=== PATIENT | female | born 1970 | race Caucasian/White ===

== ENCOUNTER 2019-05-08 08:25 | Day surgery (SDC) | payer BC ==
[~2019-05-08 08:25] MED LIST: Lactated Ringers 1,000 ML IV SCH; Midazolam 1 MG/ML 2 ML SDV ONE; Propofol 200 MG/20 ML SDV ONE; Sodium Chloride 0.9% 10 ML SDV IV PRN; Sodium Chloride 0.9% 10 ML Syringe FLUSH PRN; Sodium Chloride 0.9% 2.5 ML Syringe FLUSH PRN
--- NOTE | 2019-05-08 09:10 | PCM.PREANE ---
Preanesthetic Assessment - Anesthesia/Transfusion/Family Hx Anesthesia History: No Prior Anesthesia Family History of Anesthesia Reaction: No Transfusion History: No Prior Transfusion(s) Intubation History: Unknown - Review of Systems General: No Symptoms Pulmonary: No Symptoms Cardiovascular: No Symptoms Gastrointestinal: No Symptoms, Other (screening, mother dg. of having colon cancer) Neurological: No Symptoms Other: Reports: None - Physical Assessment Vital Signs: Last Vital Signs Temp 36.4 C 05/08/19 08:49 Pulse 96 05/08/19 08:49 Resp 15 05/08/19 08:49 BP 111/79 05/08/19 08:49 Pulse Ox 97 05/08/19 08:49 Height: 5 ft 8 in Weight: 76.657 kg ASA Class: 2 Mental Status: Alert & Oriented x3 Airway Class: Mallampati = 2 Dentition: Reports: Normal Dentition Thyro-Mental Finger Breadths: 3 Mouth Opening Finger Breadths: 3 ROM/Head Extension: Full Lungs: Clear to Auscultation, Normal Respiratory Effort Cardiovascular: Regular Rate, Regular Rhythm - Allergies Allergies/Adverse Reactions: Allergies Allergy/AdvReac Type Severity Reaction Status Date / Time No Known Allergies Allergy Verified 05/02/19 12:52 - Blood Blood Available: No - Anesthesia Plan Pre-Op Medication Ordered: None - Acknowledgements Anesthesia Type Planned: MAC Pt an Appropriate Candidate for the Planned Anesthesia: Yes Alternatives and Risks of Anesthesia Discussed w Pt/Guardian: Yes Pt/Guardian Understands and Agrees with Anesthesia Plan: Yes PreAnesthesia Questionnaire HEENT History: Reports: Allergic Rhinitis Cardiovascular History: Reports: Hypertension Neurological History: Reports: Other (See Below) Other Neuro History: nausea on recent cruise ship- no vomiting - Past Surgical History Head Surgeries/Procedures: Reports: None - SUBSTANCE USE Smoking Status *Q: Never Smoker Recreational Drug Use History: No - HOME MEDS Home Medications: Home Meds Montelukast Sodium 10 mg PO DAILY 05/02/19 [History] Potassium Chloride [Klor-Con] 20 meq PO BID 05/02/19 [History] hydroCHLOROthiazide [Hydrochlorothiazide] 25 mg PO DAILY 05/02/19 [History] - CURRENT (IN HOUSE) MEDS Current Meds: Current Medications Lactated Ringer's (Ringers, Lactated) 1,000 mls @ 125 mls/hr IV ASDIRECTED GRANT Last Admin: 05/08/19 09:03 Dose: 125 mls/hr Sodium Chloride (Saline Flush) 10 ml FLUSH ASDIRECTED PRN PRN Reason: Keep Vein Open Sodium Chloride (Saline Flush) 2.5 ml FLUSH ASDIRECTED PRN PRN Reason: Keep Vein Open Sodium Chloride (Saline Flush) 10 ml FLUSH ASDIRECTED PRN PRN Reason: Keep Vein Open Sodium Chloride (Saline Flush) 2.5 ml FLUSH ASDIRECTED PRN PRN Reason: Keep Vein Open Sodium Chloride (Normal Saline) 10 ml IV ASDIRECTED PRN PRN Reason: IV Use Discontinued Medications Midazolam HCl (Versed 1 Mg/Ml) Confirm Administered Dose 2 mg .ROUTE .STK-MED ONE Stop: 05/08/19 08:12 Propofol (Diprivan 20 Ml) Confirm Administered Dose 400 mg .ROUTE .STK-MED ONE Stop: 05/08/19 08:12
--- NOTE | 2019-05-08 11:57 | PCM.OPNOTE ---
- General Post-Op/Procedure Note Date of Surgery/Procedure: 05/08/19 Operative Procedure(s): Screening colonoscopy with polypectomy Findings: Sigmoid colon polyps x 3 Pre Op Diagnosis: Family history of colon cancer Post-Op Diagnosis: Sigmoid colon polyps x 3 Anesthesia Technique: MAC Primary Surgeon: Sugar Busby Condition: Good
--- NOTE | 2019-05-08 11:59 | PCM.POSTAN ---
POST ANESTHESIA ASSESSMENT - MENTAL STATUS Mental Status: Alert, Oriented - VITAL SIGNS Vital Signs: Last Vital Signs Temp 36.4 C 05/08/19 08:49 Pulse 65 05/08/19 11:55 Resp 16 05/08/19 11:55 BP 117/74 05/08/19 11:55 Pulse Ox 100 05/08/19 11:55 - RESPIRATORY Respiratory Status: Respiratory Rate WNL, Airway Patent, O2 Saturation Stable - CARDIOVASCULAR CV Status: Pulse Rate WNL, Blood Pressure Stable - GASTROINTESTINAL GI Status: No Symptoms - PAIN Pain Score: 0 - POST OP HYDRATION Hydration Status: Adequate & Stable - OBSERVATIONS Free Text/Narrative:: no anesthesia problems
--- NOTE | 2019-05-08 12:42 | PCM48HPAN ---
Post Anesthesia Note - EVALUATION WITHIN 48HRS OF ANESTHETIC Vital Signs in Normal Range: Yes Patient Participated in Evaluation: Yes Respiratory Function Stable: Yes Airway Patent: Yes Cardiovascular Function Stable: Yes Hydration Status Stable: Yes Pain Control Satisfactory: Yes Nausea and Vomiting Control Satisfactory: Yes Mental Status Recovered: Yes Vital Signs: Last Vital Signs Temp 36.4 C 05/08/19 08:49 Pulse 73 05/08/19 12:05 Resp 14 05/08/19 12:05 BP 125/71 05/08/19 12:05 Pulse Ox 97 05/08/19 12:05 - COMMENTS/OBSERVATIONS Free Text/Narrative:: No anesthesia problems
--- NOTE | 2019-05-08 17:53 | OR ---
SURGEON: SUGAR BUSBY MD DATE OF PROCEDURE: 05/08/2019 PREOPERATIVE DIAGNOSIS: Family history of colon cancer. POSTOPERATIVE DIAGNOSIS: Sigmoid colon polyps x3. PROCEDURE PERFORMED: Screening colonoscopy with polypectomy. PRIMARY SURGEON: Sugar Busby MD. ANESTHESIA: MAC. INSTRUMENT USED: Olympus colonoscope. EXTENT OF EXAM: To the cecum. PREPARATION: Good. LIMITATIONS: None. INDICATIONS FOR EXAMINATION: The patient is a 48-year-old female who presents for screening colonoscopy. Her mother was diagnosed with colon cancer at the age of 84. The patient and I discussed the procedure; expected perioperative course; and risks including bleeding, infection, or damage to surrounding structures including perforation. The patient verbalized understanding and wishes to proceed. PROCEDURE IN DETAIL: The patient was brought into the endoscopy suite and placed in the left lateral decubitus position. A time-out was completed verifying the patient's name, age, date of , allergies, and procedure to be performed. Monitored anesthesia care was induced and continuous oxygen was provided via nasal cannula throughout the procedure. After adequate sedation was achieved, a digital rectal exam was performed. This exam was within normal limits. A well-lubricated colonoscope was inserted in the rectum and advanced under direct visualization to the level of the cecum. The cecum was identified by both visual and anatomic landmarks. A photograph was taken of the cecal cap as well as with the scope retroflexed within the cecum. The scope was then fully withdrawn while examining the color, texture, anatomy, and integrity of the mucosa from the cecum to the anal canal. The patient was found to have 3 sessile polyps within the distal sigmoid colon. These were removed in piecemeal fashion using cold biopsy forceps. The scope was brought into the rectum and retroflexed to allow visualization of the anal canal opening. This appeared normal and a photograph was taken. The scope was then straightened out and fully withdrawn. The cecum to anus time was 11 minutes. The patient tolerated the procedure well and was transferred to the PACU in stable condition. ENDOSCOPIC DIAGNOSIS: Sigmoid colon polyps x3. RECOMMENDATIONS: Follow up in clinic in 2 weeks. DIAMOND BARRAGAN /[id number]
== END 2019-05-08 12:26 | disposition home or self-care (01) ==
LOC: MW.SDS 08:25
PROVIDERS: ATTEND Surgery
DX: Z12.11 Encounter for screening for malignant neoplasm of colon (principal); K63.5 Polyp of colon; I10 Essential (primary) hypertension; Z86.010 Personal history of colon polyps; Z80.0 Family history of malignant neoplasm of digestive organs; Z79.899 Other long term (current) drug therapy
CPT/HCPCS: 45380; 81025; J2250; J2704; J7120; 88305

== ENCOUNTER 2021-11-02 06:33 | Day surgery (SDC) | payer BC ==
[~2021-11-02 06:33] MED LIST changes: -Midazolam 1 MG/ML 2 ML SDV ONE; -Propofol 200 MG/20 ML SDV ONE; -Sodium Chloride 0.9% 10 ML SDV IV PRN; -Sodium Chloride 0.9% 10 ML Syringe FLUSH PRN; -Sodium Chloride 0.9% 2.5 ML Syringe FLUSH PRN
[2021-11-02] MEDS ORDERED: fentaNYL 100 MCG/2 ML SDV ONE (07:08)
[2021-11-02] MEDS ORDERED: Lidocaine 2% 5 ML SDV ONE (07:08)
[2021-11-02] MEDS ORDERED: Propofol 200 MG/20 ML SDV ONE (07:08)
[2021-11-02] MEDS ORDERED: Dexamethasone 4 MG/ML 5 ML MDV ONE (07:08)
[2021-11-02] MEDS ORDERED: Ondansetron 4 MG/2 ML SDV ONE (07:08)
[2021-11-02] MEDS ORDERED: fentaNYL 50 MCG/ML SDV IVPUSH PRN (07:26)
[2021-11-02] MEDS ORDERED: Albuterol 0.083% 2.5 MG/3 ML Neb Soln NEB PRN (07:26)
[2021-11-02] MEDS ORDERED: Ondansetron 4 MG/2 ML SDV IVPUSH PRN (07:26)
[2021-11-02] MEDS ORDERED: HYDROmorphone 1 MG/ML Syringe IVPUSH PRN (07:26)
[2021-11-02] MEDS ORDERED: Metoclopramide 10 MG/2 ML SDV IVPUSH PRN (07:26)
[2021-11-02] MEDS ORDERED: Naloxone 0.4 MG/ML SDV IVPUSH PRN (07:26)
[2021-11-02 08:03] LABS: CARBON DIOXIDE,CO2 21.6 mmol/L (21.0-32.0); POTASSIUM,K 3.8 mmol/L (3.5-5.1)
[2021-11-02] MEDS ORDERED: Ketorolac 30 MG/ML SDV ONE (08:28)
[2021-11-02] MEDS ORDERED: Acetaminophen/HYDROcodone 325-5 MG Tab PO PRN (08:40)
== END 2021-11-02 09:35 | disposition home or self-care (01) ==
LOC: MW.SDS 06:33
PROVIDERS: ATTEND Obstetrics & Gynecology
DX: N84.0 Polyp of corpus uteri (principal); I10 Essential (primary) hypertension; Z86.010 Personal history of colon polyps; Z79.899 Other long term (current) drug therapy; Z72.89 Other problems related to lifestyle
CPT/HCPCS: 36415; 58558; 80053; 85025; J0131; J1100; J1885; J2704; J3010; J7120; 00952; J2405

== ENCOUNTER 2024-08-09 09:38 | Day surgery (SDC) | payer BC ==
[~2024-08-09 09:38] MED LIST changes: +Albuterol 0.083% 2.5 MG/3 ML Neb Soln NEB PRN; +HYDROmorphone 1 MG/ML Syringe IVPUSH PRN; -Lactated Ringers 1,000 ML IV SCH; +Metoclopramide 10 MG/2 ML SDV IVPUSH PRN; +Morphine 2 MG/ML SYRINGE IVPUSH PRN; +Naloxone 0.4 MG/ML SDV IVPUSH PRN; +Ondansetron 4 MG/2 ML SDV IVPUSH PRN; +Phenylephrine HCl In 0.9% NaCl 1 MG/10 ML Syringe IVPUSH PRN; +Sodium Chloride 0.9% 10 ML Syringe FLUSH PRN; +Sodium Chloride 0.9% 2.5 ML Syringe FLUSH PRN; +Sodium Chloride 0.9% 20 ML SDV IV PRN; +ceFAZolin 2 GM in Sodium Chloride 0.9% 50 ML IV ONE; +fentaNYL 50 MCG/ML SDV IVPUSH PRN
[2024-08-09] MEDS: Lactated Ringers 1,000 ML IV SCH (10:23)
[2024-08-09] MEDS ORDERED: Lidocaine 1% 20 ML MDV ONE (11:08)
[2024-08-09] MEDS ORDERED: Bupivacaine 0.5% 10 ML SDV ONE (11:08)
[2024-08-09] MEDS ORDERED: Propofol 200 MG/20 ML SDV ONE (11:33)
[2024-08-09] MEDS ORDERED: fentaNYL 100 MCG/2 ML SDV ONE (11:33)
[2024-08-09] MEDS ORDERED: Midazolam 1 MG/ML 2 ML SDV ONE (11:33)
[2024-08-09] MEDS ORDERED: Lidocaine 1% 5 ML VIAL ONE (11:34)
[2024-08-09] MEDS ORDERED: propofoL 500 MG/50 ML 0 ML ONE (11:50)
[2024-08-09] MEDS ORDERED: ceFAZolin 2 GM Vial ONE (11:50)
[2024-08-09] MEDS ORDERED: Dexamethasone 4 MG/ML 5 ML MDV ONE (12:00)
[2024-08-09] MEDS ORDERED: Ondansetron 4 MG/2 ML SDV ONE (12:00)
[2024-08-09] MEDS ORDERED: Glycopyrrolate 0.2 MG/ML SDV ONE (12:07)
[2024-08-09] MEDS ORDERED: Phenylephrine HCl In 0.9% NaCl 1 MG/10 ML Syringe ONE (12:10)
== END 2024-08-09 13:25 | disposition home or self-care (01) ==
LOC: MW.SDS 09:38
PROVIDERS: ATTEND Surgery
DX: Z12.11 Encounter for screening for malignant neoplasm of colon (principal); K63.5 Polyp of colon; K52.9 Noninfective gastroenteritis and colitis, unspecified; I10 Essential (primary) hypertension
CPT/HCPCS: 21931; 45380; J0665; J0690; J1100; J1596; J2003; J2250; J2371; J2405; J2704; J3010; J7120; 00811; J3490